=== PATIENT | female | born 1975 | race Caucasian/White ===

== ENCOUNTER 2024-05-29 21:44 | Emergency (ER) | payer OTHER ==
[~2024-05-29] VITALS: Ht 165.1 cm; Wt 49.0 kg
[2024-05-29] MEDS ORDERED: traMADol HCL 50 MG/TAB PO ONE (22:30)
[2024-05-29] MEDS ORDERED: IBUPROFEN 600 MG/TAB PO ONE (22:30)
[2024-05-29] MEDS ORDERED: Diph, Acellular Pertussis, Tet 0.5 ML/VIAL (Tdap) SDV IM ONE (22:30)
[2024-05-29] MEDS ORDERED: ACETAMINOPHEN 500 MG TAB PO ONE (22:30)
[2024-05-29] MEDS ORDERED: AMOXICILLIN & POT CLAVULANATE 875 MG/TAB PO ONE (22:30)
[2024-05-29] MEDS ORDERED: MOTRIN800 MG PO (22:34)
[2024-05-29] MEDS ORDERED: AMOX/K CLAV875 M1 PO (22:34)
[2024-05-29] MEDS ORDERED: TYLENOL # 31 TA1 PO (22:34)
[2024-05-29] MEDS ORDERED: RABIES IMMUNE GLOBULIN 1,500 IU/10 ML SDV IM ONE (22:40)
[2024-05-29] MEDS ORDERED: RABIES VACCINE, PCEC 2.5 UNITS/VIAL SDV IM ONE (22:40)
[2024-05-30] VITALS: BP 120/86
== END 2024-05-30 | disposition home or self-care (01) | DRG 605 ==
LOC: ED 21:44
DX: S00.87XA Other superficial bite of other part of head, initial encounter (principal); S70.372A Other superficial bite of left thigh, initial encounter; S70.371A Other superficial bite of right thigh, initial encounter; W54.0XXA Bitten by dog, initial encounter; Y92.039 Unspecified place in apartment as the place of occurrence of the external cause
CPT/HCPCS: 90377